=== PATIENT | female | born 1945 | race Caucasian/White ===

== ENCOUNTER → 2016-11-21 | Outpatient (CLI) | payer MEDICARE, BC ==
[~2016-11-21] MED LIST: ADV10050; DEXILANT; HYDR-762; IMU50; LORA-408; MONT10TA21; PARO40TA48; RANI300T3; SYN75; TOVIAZ; TRAV2.5D; ZOC10; [UNRECOGNIZED DRUG - OTHER]
--- NOTE | 2016-11-21 15:47 | RADRPT ---
PROCEDURE: XR pelvis/right hip. CLINICAL INDICATION: Hip pain TECHNIQUE: AP pelvis/AP and lateral right hip views performed. COMPARISON: No prior studies are available for comparison. FINDINGS: There is a right total hip replacement. There is no evidence of loosening of the prosthesis. There is moderate to severe left hip osteoarthrosis. This is associated with joint space narrowing, subchondral sclerosis, subchondral cyst formation and osteophytosis. There is normal osseous minera lization. No fractures or osseous lesions are identified. The soft tissues are unremarkable. L4-5 anterior and posterior fixation IMPRESSION: Right total hip replacement. Moderate to severe left hip osteoarthrosis. RPTAT: [facility] .León Medrano MD, Date Time Electronically viewed and signed by .León Medrano MD, on 11/21/2016 15:47 .B/
== END | disposition home or self-care (01) ==
LOC: HKI 13:18
PROVIDERS: ATTEND Orthopaedic Surgery
DX: T84.84XD Pain due to internal orthopedic prosthetic devices, implants and grafts, subsequent encounter (principal); M51.36 Other intervertebral disc degeneration, lumbar region; M16.12 Unilateral primary osteoarthritis, left hip; M25.552 Pain in left hip; Z96.641 Presence of right artificial hip joint
CPT/HCPCS: 73502; G0463